=== PATIENT | male | born 1965 | race Caucasian/White ===

== ENCOUNTER 2018-01-04 10:41 | Day surgery (SDC) | payer OTHER ==
[2018-01-04] MEDS ORDERED: FENTAnyl 50 MCG/ML VIAL (12:07)
[2018-01-04] MEDS ORDERED: MIDAZOLAM 1 MG/ML 2 ML INJ ×2 (12:07)
== END 2018-01-04 16:30 | disposition home or self-care (01) ==
LOC: GIL 10:41
DX: Z12.11 Encounter for screening for malignant neoplasm of colon (principal); D12.5 Benign neoplasm of sigmoid colon
CPT/HCPCS: 45380; 88305